=== PATIENT | male | born 1990 ===

== ENCOUNTER 2017-03-29 18:41 | Emergency (ER) | payer OTHER | END 2017-03-29 20:21 | disposition home or self-care (01) | LOC: FER 18:41 | DX: S93.402A Sprain of unspecified ligament of left ankle, initial encounter (principal); X50.1XXA Overexertion from prolonged static or awkward postures, initial encounter; Y93.67 Activity, basketball; Y92.009 Unspecified place in unspecified non-institutional (private) residence as the place of occurrence of the external cause; Y99.8 Other external cause status | CPT/HCPCS: 73610; 99283 ==